=== PATIENT | female | born 1960 | race African-American/Black ===

== ENCOUNTER → 2017-01-25 | Outpatient (CLI) | payer BC ==
--- NOTE | 2017-01-25 16:30 | VAS ---
HISTORY: Left leg swelling Study: Doppler ultrasound of the veins of the left leg Comparison: None TECHNIQUE: Multiple bateman scale and color flow Doppler images of the deep venous system were obtaine d of the left lower extremity. FINDINGS: The deep venous system of the left lower extremity was evaluated from the level of the common femora l vein through the popliteal vein. Normal color flow and augmentation can be observed. In addition , normal compression is seen throughout the deep venous system. IMPRESSION: 1. Negative for DVT. Reported By:
== END ==
LOC: RAD 14:57
PROVIDERS: ATTEND Internal Medicine
DX: R60.0 Localized edema (principal); I87.2 Venous insufficiency (chronic) (peripheral)
CPT/HCPCS: 93971